=== PATIENT | female | born 1990 | race Caucasian/White ===

== ENCOUNTER 2020-08-09 14:46 | Observation (INO) | payer OTHER ==
[~2020-08-09] VITALS: Ht 160 cm; Wt 61.7 kg
[2020-08-09 14:48] VITALS: BP 112/72
[2020-08-09] MEDS ORDERED: MILI 0.25-0.031 EACH PO (14:54)
[2020-08-09 15:20] LABS: ABSOLUTE NEUTROPHILS 9.2 thou/uL (1.4-8.2); BASOPHILS 0.2 % (0.0-2.0); EOSINOPHILS 0.4 % (0.0-3.0); HEMOGLOBIN 13.5 gm/dL (12.0-15.0); LYMPHOCYTES 17.6 % (24.0-44.0); MCH 30.6 pg (26.0-34.0); MCHC 33.8 g/dL (28.0-37.0); MCV 90.6 fL (80.0-100.0); PLATELET COUNT 232 thou/uL (150-400); POLYS 72.8 % (36.0-66.0); RBC 4.42 mil/uL (4.20-5.00); WBC 12.7 thou/uL (4.0-11.0)
[2020-08-09 15:37] LABS: ALBUMIN 3.8 g/dL (3.4-5.0); TOTAL BILIRUBIN 0.7 mg/dL (0.2-1.0); TOTAL PROTEIN 7.5 g/dL (6.4-8.2)
[2020-08-09] MEDS ORDERED: SUPER THERAVIT1 EACH PO (16:07)
[2020-08-09 16:24] LABS: URINE BILIRUBIN NEGATIVE (Negative); URINE BLOOD 2+ (Negative); URINE CLARITY CLEAR; URINE COLOR YELLOW; URINE GLUCOSE-RANDOM* NEGATIVE (Negative); URINE KETONES 2+ (Negative); URINE NITRITE-REFLEX NEGATIVE (Negative); URINE PROTEIN (DIPSTICK) NEGATIVE (Negative); URINE SPECIFIC GRAVITY <= 1.005 (1.005-1.035); URINE UROBILINOGEN 0.2 E.U./dl (0.2-1.0)
[2020-08-09 16:31] LABS: URINE LEUKOCYTES-REFLEX 1+ (Negative)
[2020-08-09 16:32] LABS: SQUAMOUS 0-3 Few /LPF (0-3); URINE WBC-REFLEX None Seen /HPF (0-5)
[2020-08-09 16:33] LABS: BACTERIA-REFLEX None Seen /HPF (None Seen); CRYSTALS None Seen /LPF (None Seen); URINE RBC 3-10 Few /HPF (NONE SEEN)
[2020-08-09 18:32] VITALS: BP 112/72
[2020-08-09 21:07] VITALS: BP 139/88
[2020-08-10 03:39] VITALS: BP 91/54
[2020-08-10 06:55] VITALS: BP 106/66
[2020-08-10] MEDS ORDERED: HYDROCODON-ACE1 EAC7 PO (07:06)
[2020-08-10 09:41] VITALS: BP 106/66
--- NOTE | 2020-08-11 12:12 | O ---
[facility] [place] [address] OPERATIVE REPORT Name: NATHAN ANDRADE Room #: 433-I [facility] Tera Crowder#: [id number] Admission: 08/09/20 Attend Phys: Rocky Boland, Discharge: 08/10/20 Date of : 89 Report #: [id number] THIS REPORT FOR: cc: Alex Strong MD, Neal A. MD Patterson, Jonathan D. MD ~ DOC #: [id number] Rocky Boland MD DATE OF SERVICE: 08/09/2020 PREOPERATIVE DIAGNOSIS: Acute appendicitis. POSTOPERATIVE DIAGNOSIS: Acute appendicitis. PROCEDURE: Laparoscopic appendectomy. SURGEON: Rocky Boland MD TYPE OF ANESTHESIA: General. ESTIMATED BLOOD LOSS: Minimal. SPECIMENS: Appendix. DESCRIPTION OF PROCEDURE: After informed consent was obtained, the patient was brought to the operating room and placed supine. SCDs were placed and working, preoperative antibiotics were administered, general anesthesia was induced. The abdomen was prepped and draped in the usual sterile fashion. A 10 mm incision was made below the umbilicus. Fascia was incised and a trocar was placed. Pneumoperitoneum was established. Right upper quadrant and left lower quadrant 5 mm trocars were placed under direct vision. The patient was placed slightly tilted to the left side. The cecum was identified. Appendix was identified. It was noted to be inflamed, consistent with appendicitis. A window was made in the mesoappendix. The base of the appendix was then identified. The mesoappendix was ligated with a PARAM angeles load stapler. There was excellent hemostasis. I then ligated the base of the appendix with a PARAM blue load stapler. It was placed into an Endopouch and removed. The fascia was then closed with a hyroia-ka-siimj 0 Vicryl. Skin was closed with 4-0 Monocryl. Incisions were sealed with Steri-Strips. COMPLICATIONS: None. DISPOSITION: The patient was taken to recovery in satisfactory condition. MD JANAY Sterling/ANNETTE/[address] [address] OPERATIVE REPORT Name: NATHAN ANDRADE Room #: 433-I [facility] Vel#: [id number] Admission: 08/09/20 Attend Phys: Rocky Boland, Discharge: 08/10/20 Date of : 89 Report #: [id number] <ELECTRONICALLY SIGNED> By: Rocky Bloand MD 08/11/20 1212 1812 1840 Rocky Boland MD /nt
--- NOTE | 2020-08-11 18:06 | PATH ---
[facility] [address] [place] [address] PATHOLOGY RPT PROCEDURE Name: NATHAN ANDRADE Room #: 433-I BEULAH Haley M.RMarvin#: [id number] Admission: 08/09/20 Date of : 89 Discharge: 08/10/20 Report #: [id number] Path Case #: [id number] [facility] Accession Number: [id number] . 01 Material submitted: . appendix - APPENDIX . 01 Clinical history: . ACUTE APPENDICITIS LAPAROSCOPIC APPENDECTOMY . 02 Diagnosis: Appendix, appendectomy: - Marked acute appendicitis along with marked acute serositis. . (IUV:mml; 08/11/2020) [facility] 08/11/2020 1608 Local . 02 Electronically signed: . Arabella Reynolds MD, Pathologist NPI- [id number] . 01 Gross description: . Fixative: Formalin Labeled: Appendix Appendix length: 5 cm Appendix diameter: Up to 0.9 cm Mesoappendix: 0.7 cm Proximal margin: Inked Luminal diameter: 0.2 cm Serosa: Unremarkable without gross evidence of exudate Cut surface: Unremarkable Perforation: None Fecaliths none Lesions/abnormalities: None A1 Proximal margin (inked black), and the entire tip A2 cross sections ([facility]; 08/10/2020) MILENA/MILENA 08/10/20202027 Local . 02 Pathologist provided ICD-10: K35.80 . 02 CPT . 664604 Specimen Comment: A courtesy copy of this report has been sent to [phone], [phone] [address] PATHOLOGY RPT PROCEDURE Name: NATHAN ANDRADE Room #: 433-I [facility]#: [id number] Admission: 08/09/20 Date of : 89 Discharge: 08/10/20 Report #: [id number] Path Case #: [id number] Specimen Comment: [id number] Specimen Comment: Report sent to ,DR GONZALEZ,DR MARTINEZ / DR STEWART Performed at: 01 [facility] [address], [place] [id number] MD Gonzalo Devi MD Phone: [phone] Performed at: [address] [id number] MD Arabella Reynolds MD Phone: [phone]
== END 2020-08-10 10:36 | disposition home or self-care (01) ==
LOC: ER 14:46 → 4S 18:25 → EROBS 18:29 → 4S 20:45
PROVIDERS: Emergency Medicine; ADMIT Surgery; ATTEND Surgery
DX: K35.80 Unspecified acute appendicitis (principal); Z20.822 Contact with and (suspected) exposure to COVID-19; Z79.899 Other long term (current) drug therapy
CPT/HCPCS: 10195; 50101; 50411; 50555; 50739; 50740; 52265; 52266; 53307; 53312; 53314; 56462; 56525; 56526; 58574; 62110; 62900; 70005